=== PATIENT | female | born 1935 | race Caucasian/White ===

== ENCOUNTER 2019-03-22 11:30 | Emergency (ER) | payer OTHER ==
[~2019-03-22 11:30] MED LIST: ASPI-1197 PO; ATEN25TA PO; CALC1TAB2 PO; CEPH-578 PO; DOCU-275 PO; DONE10TA43 PO; EZET10TA48 PO; FERR324T4 PO; INTE30SY IM; LISI2.5T2 PO; MIRT15TA6 PO; MULT-1296 PO; PRAM0.129 PO; PYRI100T4 PO; SERT50TA12 PO; TAMS-1 PO
[2019-03-22] MEDS ORDERED: ONDANSETRON HCL 4 MG/2 ML VIAL ONE (12:32)
[2019-03-22] MEDS ORDERED: MORPHINE SULFATE 2 MG/ML 1ML SYG ONE (12:32)
[2019-03-22] MEDS ORDERED: KETOROLAC TROMETHAMINE 15MG/ML ONE (12:32)
== END 2019-03-22 13:16 | disposition home or self-care (01) ==
LOC: EDH 11:30
DX: M48.56XA Collapsed vertebra, not elsewhere classified, lumbar region, initial encounter for fracture (principal); N23 Unspecified renal colic; I10 Essential (primary) hypertension; E78.5 Hyperlipidemia, unspecified
CPT/HCPCS: 96374; 96375 ×2; 99284; J1885; J2405

== ENCOUNTER → 2019-04-24 | Outpatient (CLI) | payer OTHER ==
[~2019-04-24] MED LIST changes: +PYRI100T10 PO; -PYRI100T4 PO
== END | disposition home or self-care (01) ==
LOC: RAH 13:46
PROVIDERS: ATTEND Urology
DX: N20.0 Calculus of kidney (principal); M47.817 Spondylosis without myelopathy or radiculopathy, lumbosacral region
CPT/HCPCS: 74018; 76100